=== PATIENT | male | born 1935 | race Caucasian/White ===

== ENCOUNTER → 2019-03-24 | Outpatient (CLI) | payer MEDICARE ==
[~2019-03-24] MED LIST: AMLO10TA8 PO; ATOR20TA37 PO; HYDR25TA6 PO; LOSA100T14 PO; MELO7.5T31 PO; NAPR-856 PO
[2019-03-24 14:44] LABS: ALANINE AMINOTRANSFERASE 17 U/L (12-78); ALBUMIN 3.7 g/dL (3.4-5.0); ANION GAP 7 mmol/L (5-15); CALCIUM 8.7 mg/dL (8.5-10.1); CHLORIDE 108 mmol/L (98-107); CREATININE 1.02 mg/dL (0.7-1.3)
[2019-03-24 14:46] LABS: ALKALINE PHOSPHATASE 50 U/L (45-117); BILIRUBIN,TOTAL 0.9 mg/dL (0.2-1.0); TOTAL PROTEIN 6.8 g/dL (6.4-8.2)
== END | disposition home or self-care (01) ==
LOC: STAR 13:36
PROVIDERS: ATTEND Podiatrist Foot & Ankle Surgery
DX: Z01.818 Encounter for other preprocedural examination (principal); T84.9XXA Unspecified complication of internal orthopedic prosthetic device, implant and graft, initial encounter; I44.0 Atrioventricular block, first degree; Y79.8 Miscellaneous orthopedic devices associated with adverse incidents, not elsewhere classified; Y92.89 Other specified places as the place of occurrence of the external cause
CPT/HCPCS: 36415; 80053; 93005

== ENCOUNTER 2019-04-03 14:13 | Day surgery (SDC) | payer MEDICARE ==
[~2019-04-03] VITALS: Ht 182.9 cm; Wt 104.9 kg
== END 2019-04-04 08:35 | disposition home or self-care (01) ==
LOC: OR 14:13 → 4NOR 20:55 → OR 22:39 → 4NOR 22:39 → OR 04-04 08:35
PROVIDERS: ATTEND Podiatrist Foot & Ankle Surgery
DX: T84.84XA Pain due to internal orthopedic prosthetic devices, implants and grafts, initial encounter (principal); M96.0 Pseudarthrosis after fusion or arthrodesis; I10 Essential (primary) hypertension; E78.5 Hyperlipidemia, unspecified; Y83.8 Other surgical procedures as the cause of abnormal reaction of the patient, or of later complication, without mention of misadventure at the time of the procedure
CPT/HCPCS: 27870; 64450; 73600; C1713; C1762; J0330; J0360; J0690; J1170; J2704; J3010; 76000; G0378